=== PATIENT | female | born 1955 | race Caucasian/White ===

== ENCOUNTER 2024-01-26 11:50 | Emergency (ER) | payer MEDICARE, OTHER ==
[~2024-01-26] VITALS: Ht 152.4 cm; Wt 68.5 kg
[2024-01-26 11:57] VITALS: TEMP 97.9
[2024-01-26] MEDS: IV NS 0.9% 1,000 ML BAG IV ONE (12:30)
[2024-01-26 12:32] LABS: BASOPHILS % (AUTO) 0.6 % (0.0-2.0); EOSINOPHILS # (AUTO) 0.2 K/uL (0.0-0.7); EOSINOPHILS % (AUTO) 3.1 % (0.0-6.0); HEMATOCRIT 35 % (33-45); HEMOGLOBIN 11.7 g/dL (11.5-14.8); LYMPHOCYTES # (AUTO) 1.2 K/uL (0.8-4.8); LYMPHOCYTES % (AUTO) 14.7 % (20.0-44.0); MEAN CORPUSCULAR HEMOGLOBIN 32 PG (26.0-33.0); MEAN CORPUSCULAR HGB CONC 34 g/dl (31.0-36.0); MEAN CORPUSCULAR VOLUME 94 fL (82-100); MONOCYTES # (AUTO) 0.5 K/uL (0.1-1.30); MONOCYTES % (AUTO) 6.3 % (2.0-12.0); NEUTROPHILS # (AUTO) 5.9 K/uL (1.8-8.9); NEUTROPHILS % (AUTO) 75.3 % (43.0-81.0); PLATELET COUNT (AUTO) 268 K/uL (150-450); RED CELL DISTRIBUTION WIDTH 13.8 % (11.5-15.0); WHITE BLOOD COUNT (AUTO) 7.9 K/uL (4.3-11.0)
[2024-01-26] MEDS ORDERED: LORAZEPAM INJ 2 MG/ML VIAL ONE (12:41)
[2024-01-26] MEDS: LORAZEPAM INJ 2 MG/ML VIAL IV ONE (12:45)
[2024-01-26 13:02] LABS: CALCIUM, SERUM 8.3 mg/dL (8.5-10.1); CARBON DIOXIDE 31 mmol/L (21-32); CHLORIDE 101 mmol/L (98-107); CREATININE 0.7 mg/dL (0.6-1.3); GLUCOSE 114 mg/dL (74-106); POTASSIUM 3.6 mmol/L (3.5-5.1); SODIUM SERUM 138 mmol/L (136-145); UREA NITROGEN, BLOOD 16 mg/dL (7-18)
[2024-01-26 14:00] VITALS: BP 110/59; O2SAT 97
[2024-01-26 14:31] LABS: APPEARANCE,URINE CLEAR (CLEAR); BILIRUBIN,URINE NEGATIVE (NEGATIVE); BLOOD, URINE NEGATIVE Ery/uL (NEGATIVE); KETONES,URINE NEGATIVE (NEGATIVE); LEUKOCYTE ESTERASE ,URINE NEGATIVE (NEGATIVE); NITRITE, URINE NEGATIVE (NEGATIVE); PROTEIN,URINE NEGATIVE (NEGATIVE); UGLUCOSE NEGATIVE (NEGATIVE); UROBILINOGEN,URINE 0.2 EU/dL (0.2)
[2024-01-26 14:42] LABS: COLOR,URINE STRAW (YELLOW)
== END 2024-01-26 16:35 ==
LOC: ER 11:55
DX: R53.1 Weakness (principal); R42 Dizziness and giddiness; R30.0 Dysuria; R53.83 Other fatigue; R55 Syncope and collapse; G20.A1 Parkinson's disease without dyskinesia, without mention of fluctuations; I10 Essential (primary) hypertension
CPT/HCPCS: 99284; 96374; 71045; 96361; 85025; 80048; 81003; 36415; 84484 ×2; J2060; J7030

== ENCOUNTER 2024-11-25 18:33 | Inpatient (IN) | payer MEDICARE, OTHER ==
[~2024-11-25] VITALS: Ht 162.6 cm; Wt 70.3 kg
[2024-11-25 20:14] LABS: PLATELET COUNT (AUTO) 317 K/uL (150-450); RED BLOOD CELL COUNT(AUTO) 3.39 MIL/uL (4.0-5.2); RED CELL DISTRIBUTION WIDTH 13.6 % (11.5-15.0); WHITE BLOOD COUNT (AUTO) 8.7 K/uL (4.3-11.0)
[2024-11-25 20:22] LABS: CALCIUM, SERUM 9.2 mg/dL (8.5-10.1); CREATININE 0.9 mg/dL (0.6-1.3); SODIUM SERUM 132.0 mmol/L (136-145); UREA NITROGEN, BLOOD 24.0 mg/dL (7-18)
[2024-11-25 20:25] LABS: INR 0.99 (0.91-1.10)
[2024-11-25 20:27] LABS: ASPARTATE AMINOTRANSFERASE 13.0 U/L (15-37); TOTAL PROTEIN, SERUM 6.5 g/dL (6.4-8.2)
[2024-11-25 21:17] LABS: APPEARANCE,URINE CLEAR (CLEAR); BLOOD, URINE NEGATIVE Ery/uL (NEGATIVE); LEUKOCYTE ESTERASE ,URINE NEGATIVE (NEGATIVE); NITRITE, URINE NEGATIVE (NEGATIVE); UGLUCOSE NEGATIVE (NEGATIVE)
[2024-11-25] MEDS: IV NS 0.9% 1,000 ML BAG IV ONE (21:41)
[2024-11-25] MEDS ORDERED: Z GUARD REMEDY 4 OZ OINT TP PRN (22:00)
[2024-11-25] MEDS ORDERED: ONDANSETRON HCL/PF 4 MG/2 ML VIAL IVP PRN (22:00)
[2024-11-25] MEDS ORDERED: MAGNESIUM HYDROXIDE 30 ML UDC PO PRN (22:00)
[2024-11-25] MEDS: ENOXAPARIN SODIUM 40 MG/0.4 ML DISP.SYRIN SQ SCH (22:00)
[2024-11-25] MEDS: IV NS 0.9% 1,000 ML IV SCH (22:00)
[2024-11-25] MEDS ORDERED: MAG HYDROX/AL HYDROX/SIMETH 30 ML UDC PO PRN (22:00)
[2024-11-25] MEDS ORDERED: ENOXAPARIN SODIUM 40 MG/0.4 ML DISP.SYRIN SQ ONE (23:16)
[2024-11-26 01:34] VITALS: BP 124/69; TEMP 98.9; O2SAT 97
[2024-11-26 04:00] VITALS: BP 119/63; TEMP 97.9; O2SAT 96
[2024-11-26] MEDS ORDERED: CARB1TAB40 PO (04:23)
[2024-11-26] MEDS ORDERED: GABA300C PO (04:23)
[2024-11-26] MEDS ORDERED: ROPI1TAB6 PO (04:23)
[2024-11-26] MEDS ORDERED: CLON1TAB12 PO (04:23)
[2024-11-26 06:59] LABS: PLATELET COUNT (AUTO) 272 K/uL (150-450); RED BLOOD CELL COUNT(AUTO) 3.23 MIL/uL (4.0-5.2); RED CELL DISTRIBUTION WIDTH 13.8 % (11.5-15.0); WHITE BLOOD COUNT (AUTO) 6.2 K/uL (4.3-11.0)
[2024-11-26 08:00] VITALS: BP 120/71; TEMP 97.9; TEMP 98.1; O2SAT 100; O2SAT 96
[2024-11-26 08:14] LABS: CALCIUM, SERUM 8.8 mg/dL (8.5-10.1); CREATININE 0.7 mg/dL (0.6-1.3); PHOSPHORUS 4.1 mg/dL (2.5-4.9); SODIUM SERUM 139.0 mmol/L (136-145); UREA NITROGEN, BLOOD 16.0 mg/dL (7-18)
[2024-11-26] MEDS: PANTOPRAZOLE 40 MG TABLET.DR PO SCH (08:18)
[2024-11-26] MEDS ORDERED: HYDR-3972 PO (10:01)
[2024-11-26] MEDS ORDERED: CLOP75TA15 PO (10:01)
[2024-11-26] MEDS ORDERED: CLON0.1T PO (10:01)
[2024-11-26] MEDS ORDERED: GABA600T PO (10:01)
[2024-11-26] MEDS ORDERED: ATOR20TA PO (10:01)
[2024-11-26] MEDS ORDERED: DULO30CA52 PO (10:01)
[2024-11-26] MEDS ORDERED: LOSA100T31 PO (10:01)
[2024-11-26] MEDS ORDERED: TRAZ150T75 PO (10:01)
[2024-11-26] MEDS ORDERED: QUET50TA PO (10:01)
[2024-11-26] MEDS ORDERED: LORA-259 PO (10:01)
[2024-11-26] MEDS ORDERED: DOSING PER PHARMACY-VANCOMYCIN IV XX PRN (11:30)
[2024-11-26] MEDS ORDERED: DOSE PER PHARMACY (MD SPECIFY MEDICATION) 1 EA XX PRN (11:30)
[2024-11-26] MEDS: CEFTRIAXONE 2 G in IV D5W 100 ML IV SCH (12:13)
[2024-11-26] MEDS: GABAPENTIN 300 MG CAPSULE PO SCH (12:14)
[2024-11-26] MEDS: CARBIDOPA LEVO PO SCH (12:49)
[2024-11-26] MEDS: HYDROCODONE/APAP 5/325MG TABLET PO PRN (12:50)
[2024-11-26] MEDS: VANCOMYCIN 1 GM in IV D5W 250ml IV ONE (14:45)
[2024-11-26] MEDS: ROPINIROLE 1 MG PO SCH (15:04)
[2024-11-26 16:00] VITALS: BP 118/76; TEMP 98.1; O2SAT 95
[2024-11-26] MEDS: VANCOMYCIN 500 MG in IV D5W 100ml IV ONE (16:15)
[2024-11-26] MEDS: QUETIAPINE FUMARATE 25 MG TABLET PO SCH (16:36)
[2024-11-26] MEDS: ENSURE ENLIVE CHOC 237 ML CAN PO SCH (18:38)
[2024-11-26 19:15] LABS: APPEARANCE,URINE CLEAR (CLEAR); BLOOD, URINE NEGATIVE Ery/uL (NEGATIVE); LEUKOCYTE ESTERASE ,URINE NEGATIVE (NEGATIVE); NITRITE, URINE POSITIVE (NEGATIVE); UGLUCOSE NEGATIVE (NEGATIVE)
[2024-11-26 19:19] LABS: ADD URINE CULTURE YES; SQUAMOUS EPITHELIAL CELL,UR Few /HPF (None Seen)
[2024-11-26 20:00] VITALS: BP 121/73; TEMP 98.1; O2SAT 100
[2024-11-26] MEDS: TRAZODONE 50 MG TABLET PO SCH (21:07)
[2024-11-26] MEDS: ATORVASTATIN 10 MG TABLET PO SCH (21:07)
[2024-11-27] MEDS: ACETAMINOPHEN 325 MG TABLET PO PRN (00:11)
[2024-11-27] MEDS: VANCOMYCIN 750 MG in IV D5W 250 ML IV SCH (03:10)
[2024-11-27 07:00] VITALS: BP_SYST 116; BP_SYST 119; BP_DIAS 59; BP_DIAS 64; TEMP 97.7; O2SAT 99
[2024-11-27 07:50] LABS: PLATELET COUNT (AUTO) 282 K/uL (150-450); RED BLOOD CELL COUNT(AUTO) 3.14 MIL/uL (4.0-5.2); RED CELL DISTRIBUTION WIDTH 14.0 % (11.5-15.0); WHITE BLOOD COUNT (AUTO) 5.8 K/uL (4.3-11.0)
[2024-11-27] MEDS ORDERED: ENSURE ENLIVE CHOC 237 ML CAN PO SCH (08:00)
[2024-11-27 08:05] LABS: CALCIUM, SERUM 8.3 mg/dL (8.5-10.1); CREATININE 0.6 mg/dL (0.6-1.3); SODIUM SERUM 141.0 mmol/L (136-145); UREA NITROGEN, BLOOD 9.0 mg/dL (7-18)
[2024-11-27] MEDS: CLOPIDOGREL BISULFATE 75 MG TABLET PO SCH (08:12)
[2024-11-27] MEDS ORDERED: LACTULOSE 10 G/15 ML UDC (PYXIS) PO PRN (13:00)
[2024-11-27] MEDS: POLYETHYLENE GLYCOL 3350 17 GM POWD.PACK PO SCH (13:32)
[2024-11-27 16:00] VITALS: BP_SYST 116; BP_SYST 119; BP_DIAS 59; BP_DIAS 64; TEMP 97.7; TEMP 98.1; O2SAT 99
[2024-11-27] MEDS: IV NS 0.9% 1,000 ML IV PRN (16:36)
[2024-11-27 20:00] VITALS: BP 99/57; TEMP 98.2; O2SAT 98
[2024-11-27 21:37] VITALS: BP 99/57; TEMP 98.8; O2SAT 98
[2024-11-28 08:00] LABS: PLATELET COUNT (AUTO) 262 K/uL (150-450); RED BLOOD CELL COUNT(AUTO) 3.06 MIL/uL (4.0-5.2); RED CELL DISTRIBUTION WIDTH 14.1 % (11.5-15.0); WHITE BLOOD COUNT (AUTO) 5.1 K/uL (4.3-11.0)
[2024-11-28 08:01] LABS: CALCIUM, SERUM 8.3 mg/dL (8.5-10.1); CREATININE 0.5 mg/dL (0.6-1.3); SODIUM SERUM 142.0 mmol/L (136-145); UREA NITROGEN, BLOOD 9.0 mg/dL (7-18)
[2024-11-28 08:04] LABS: PHOSPHORUS 3.6 mg/dL (2.5-4.9)
[2024-11-28 08:44] VITALS: BP 98/71; TEMP 97.9; O2SAT 97
[2024-11-28] MEDS: DAKINS QUARTER STRENGTH (0.125%) 480 ML BOTTLE TOP SCH (11:28)
[2024-11-28] MEDS: MUPIROCIN OINT 2% 22 GM TUBE NS SCH (18:33)
[2024-11-28 20:00] VITALS: BP 101/57; TEMP 98.2; O2SAT 99
[2024-11-29 07:30] LABS: CALCIUM, SERUM 8.5 mg/dL (8.5-10.1); CREATININE 0.5 mg/dL (0.6-1.3); PHOSPHORUS 4.4 mg/dL (2.5-4.9); SODIUM SERUM 140.0 mmol/L (136-145); UREA NITROGEN, BLOOD 11.0 mg/dL (7-18)
[2024-11-29 08:00] VITALS: BP 126/63; TEMP 98.2; O2SAT 98
[2024-11-29] MEDS: THERAHONEY GEL 1.5 OZ TUBE TP SCH (12:32)
[2024-11-29 14:57] LABS: PLATELET COUNT (AUTO) 267 K/uL (150-450); RED BLOOD CELL COUNT(AUTO) 3.12 MIL/uL (4.0-5.2); RED CELL DISTRIBUTION WIDTH 13.9 % (11.5-15.0); WHITE BLOOD COUNT (AUTO) 7.0 K/uL (4.3-11.0)
[2024-11-29 16:00] VITALS: BP 113/62; TEMP 98.4; O2SAT 95
[2024-11-29] MEDS: ARGININE/GLUTAMINE/CALCIUM BMB 1 EACH POWD.PACK PO SCH (17:41)
[2024-11-29 20:00] VITALS: BP 113/59; TEMP 97.5; O2SAT 96
[2024-11-30 07:24] LABS: CALCIUM, SERUM 8.6 mg/dL (8.5-10.1); CREATININE 0.5 mg/dL (0.6-1.3); SODIUM SERUM 141.0 mmol/L (136-145); UREA NITROGEN, BLOOD 16.0 mg/dL (7-18)
[2024-11-30 07:30] VITALS: BP 99/61; TEMP 97.7; O2SAT 99
[2024-11-30] MEDS ORDERED: NUTR1PAC14 PO (12:55)
[2024-11-30] MEDS ORDERED: PANT40TA49 PO (12:55)
[2024-11-30] MEDS ORDERED: AMOX1TAB15 PO (12:55)
[2024-11-30] MEDS ORDERED: COLL30OI TP (12:55)
== END 2024-11-30 15:30 | DRG 580 ==
LOC: ER 18:39 → MED 11-26 01:12
PROVIDERS: ADMIT Registered Nurse Psychiatric/Mental Health; ATTEND Nurse Practitioner Acute Care
PROC: 0KBP0ZZ Excision of Left Hip Muscle, Open Approach (ICD-10-PCS; principal; 2024-11-28)
PROC: 0KBN0ZZ Excision of Right Hip Muscle, Open Approach (ICD-10-PCS; 2024-11-28)
PROC: 0H9NXZZ Drainage of Left Foot Skin, External Approach (ICD-10-PCS; 2024-11-28)
PROC: 0H9MXZZ Drainage of Right Foot Skin, External Approach (ICD-10-PCS; 2024-11-28)
DX: L89.154 Pressure ulcer of sacral region, stage 4 (principal); D68.69 Other thrombophilia; E44.1 Mild protein-calorie malnutrition; E87.1 Hypo-osmolality and hyponatremia; E86.0 Dehydration; E88.09 Other disorders of plasma-protein metabolism, not elsewhere classified; L89.622 Pressure ulcer of left heel, stage 2; L89.612 Pressure ulcer of right heel, stage 2; D64.9 Anemia, unspecified; E78.5 Hyperlipidemia, unspecified; E66.9 Obesity, unspecified; G20.A1 Parkinson's disease without dyskinesia, without mention of fluctuations; I10 Essential (primary) hypertension; L89.616 Pressure-induced deep tissue damage of right heel; L89.626 Pressure-induced deep tissue damage of left heel; F41.9 Anxiety disorder, unspecified; R53.1 Weakness; Z68.26 Body mass index [BMI] 26.0-26.9, adult; R33.9 Retention of urine, unspecified; R23.8 Other skin changes; R13.13 Dysphagia, pharyngeal phase
CPT/HCPCS: 36415; 80048-TC; 80053-TC; 80202-TC; 81001; 83735-TC; 84100-TC; 85025-TC; 85730-TC; 87070-TC; 87075-TC; 87081-TC; 87086-TC; 87186-TC; 92526; 92611; 93971-TC; A4223; A6253; A6403; G0378; J0696; J1650; J3373; J3374; J7030; J7060